=== PATIENT | male | born 1985 | race African-American/Black ===

== ENCOUNTER 2018-02-08 10:48 | Emergency (ER) | payer SELFPAY ==
[~2018-02-08] VITALS: Ht 172.7 cm; Wt 78.0 kg
[2018-02-08 15:27] VITALS: BP 137/93
[2018-02-08] MEDS ORDERED: LEVETIRACETAM 500MG TABLET PO ONE (15:30)
== END 2018-02-08 15:31 | disposition home or self-care (01) ==
LOC: ER 10:48
DX: G40.909 Epilepsy, unspecified, not intractable, without status epilepticus (principal); F41.9 Anxiety disorder, unspecified
CPT/HCPCS: 99283